=== PATIENT | male | born 1975 | race Caucasian/White ===

== ENCOUNTER 2018-04-26 21:46 | Emergency (ER) | payer OTHER ==
[2018-04-26] MEDS ORDERED: BUPIVACAINE 0.5% PF 10 ML VIAL SUBQ STA (22:49)
[2018-04-26] MEDS ORDERED: BUPIVACAINE 0.5% PF 10 ML VIAL ONE (23:59)
[2018-04-27] MEDS ORDERED: BACITRACIN OINT TOP ONE (01:26)
--- NOTE | 2018-04-27 01:28 | ED Physician Documentation ---
PD HPI LOWER EXT INJURY - Stated complaint Stated Complaint: LT LEG LAC - Chief complaint Chief Complaint: Laceration - History obtained from History obtained from: Patient - History of Present Illness PD HPI LOW EXT INJURY LOCATION: Left, Lower leg, Other (left forearm) Type of injury: Fall Where injury occurred: [place] Timing - onset: Today Timing - duration: Hours Timing - details: Abrupt onset, Still present Improved by: Rest, Immobilization Worsened by: Moving, Palpating Associated symptoms: No: Weakness, Numbness, Tingling Contributing factors: No: Anticoagulated Similar symptoms before: Has not had sx before Recently seen: Not recently seen - Additional information Additional information: 43-year-old male who [facility] [employer] [facility] was skateboarding and he fell abrading his left forearm and lacerating his left calf. He has a deep flap laceration with foreign material in it. Review of Systems Constitutional: denies: Fever Eyes: denies: Decreased vision Ears: denies: Ear pain Nose: denies: Congestion Throat: denies: Sore throat Respiratory: denies: Cough GI: denies: Nausea, Vomiting Skin: reports: Laceration (s) Musculoskeletal: reports: Extremity pain. denies: Neck pain, Back pain PD PAST MEDICAL HISTORY - Past Medical History Past Medical History: No - Past Surgical History Past Surgical History: No - Present Medications Home Medications: Ambulatory Orders Medication Instructions Recorded Confirmed No Known Home Medications [No 04/26/18 04/26/18 Known Home Medications] - Allergies Allergies/Adverse Reactions: Allergies Allergy/AdvReac Type Severity Reaction Status Date / Time No Known Drug Allergies Allergy Verified 04/26/18 21:53 - Social History Does the pt smoke?: No Smoking Status: Never smoker Does the pt drink ETOH?: Yes ETOH Use: Beer Does the pt have substance abuse?: No - Immunizations Immunizations are current?: No Immunizations: TDAP >10years/unknown, Other immun current PD ED PE NORMAL - Vitals Vital signs reviewed: Yes (hypertensive mild ) - General General: Alert and oriented X 3, No acute distress, Well developed/nourished - HEENT HEENT: Atraumatic, PERRL, EOMI - Neck Neck: Supple, no meningeal sign - Respiratory Respiratory: No respiratory distress - Derm Derm: Normal color, Warm and dry - Extremities Extremities: No deformity, No edema, Other (There is road rash to the left forearm that is superficial and has been cleaned by staff prior to my exam. The left calf has a 6cm flap laceration that is heavily contaminated. 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, No motor deficit, No sensory deficit, Normal speech Eye Opening: Spontaneous Motor: Obeys Commands Verbal: Oriented GCS Score: 15 - Psych Psych: Normal mood, Normal affect Results - Vitals Vitals: Vital Signs - 24 hr 04/26/18 04/27/18 21:51 01:30 Temperature 36.8 C Heart Rate 80 74 Respiratory 16 15 Rate Blood Pressure 143/80 H 129/71 O2 Saturation 98 98 Oxygen O2 Source Room air Procedures - Laceration (location) left calf Length in cm: 6 Wound type: Flap, Into subcut fat, Heavily Contaminated Neurovascular status: Sensory intact, Motor intact, Vascular intact Anesthesia: Marcaine 0.5% Wound Preparation: Hibiclens, Irrigated copiously NS, Debrided extensively, Wound explored, To the base Skin layer closure: Nylon, Interrupted, Size #-0 - enter number ([id number]) Other: Patient tolerated well, No complications, Neurovascular intact, Dressing applied, Tetanus UTD Complexity: Intermediate PD MEDICAL DECISION MAKING - ED course Complexity details: reviewed results, re-evaluated patient, considered differential, d/w patient ED course: 43-year-old male with a heavily contaminated macerated flap laceration to his left calf is cleansed and debrided and sutured. He tolerates this well. - Sepsis Event Vital Signs: Vital Signs - 24 hr 04/26/18 04/27/18 21:51 01:30 Temperature 36.8 C Heart Rate 80 74 Respiratory 16 15 Rate Blood Pressure 143/80 H 129/71 O2 Saturation 98 98 Oxygen O2 Source Room air Departure - Departure Disposition: 01 Home, Self Care Clinical Impression: Abrasion, Laceration Instructions: ED Abrasion, ED Laceration All Follow-Up: Your, doctor [Other] Comments: sutures will need to be removed in 10 days Discharge Date/Time: 04/27/18 01:31
[2018-04-27 01:31] VITALS: BP 129/71
== END 2018-04-27 01:31 | disposition home or self-care (01) ==
LOC: ED 21:46
DX: S81.822A Laceration with foreign body, left lower leg, initial encounter (principal); S50.812A Abrasion of left forearm, initial encounter; V00.131A Fall from skateboard, initial encounter; Y92.830 Public park as the place of occurrence of the external cause; Y93.51 Activity, roller skating (inline) and skateboarding
CPT/HCPCS: 12032; 99282; 99283; A9270